=== PATIENT | female | born 1955 | race Caucasian/White ===

== ENCOUNTER 2020-12-09 11:27 | Outpatient (CLI) | payer MEDICARE, SELFPAY | END 2020-12-09 11:28 | disposition home or self-care (01) | LOC: ANHCOVIDVC 11:27 | PROVIDERS: PCP Family Medicine | DX: Z23 Encounter for immunization (principal) | CPT/HCPCS: 0001A; 91300 ==

== ENCOUNTER 2020-12-30 11:28 | Outpatient (CLI) | payer MEDICARE, SELFPAY | END 2020-12-30 11:29 | disposition home or self-care (01) | LOC: ANHCOVIDVC 11:28 | PROVIDERS: PCP Family Medicine | DX: Z23 Encounter for immunization (principal) | CPT/HCPCS: 0002A; 91300 ==

== ENCOUNTER 2021-08-18 16:00 | Outpatient (CLI) | payer MEDICARE, SELFPAY ==
--- NOTE | ~2021-08-18 | CT_ITS ---
EXAMINATION: CT soft tissue neck w con DATE: 08/18/2021 17:37 INDICATION: Neck mass. TECHNIQUE: Computed tomography (CT) of the neck was performed with 75 mL Omnipaque-350 intravenous co ntrast. Automated exposure control and iterative reconstruction technique were employed. The dose-audrey gth product was 583.29 mGy-cm. COMPARISON: Chest CT 10/02/2019 FINDINGS: Calcified lung nodules and calcified hilar lymph nodes are consistent with old granulomatou s disease. There is a skin marker overlying right parotid gland. There is no abnormal mass in this ar ea. There is no cervical lymphadenopathy. There is plaque in the proximal internal carotid arteries w ith 0% stenosis relative to normal distal artery lumen diameters. There is mild mucosal thickening in right ethmoid sinus. The mastoid air cells are normal. There is moderate cervical spondylosis. There is a chronic hemangioma in T1 vertebral body. IMPRESSION: 1. No abnormal neck mass or lymphadenopathy. Reviewed, dictated and finalized at location A. NG REPAIRER
--- NOTE | ~2021-08-18 | CT_ITS ---
EXAMINATION: CT lung screening DATE: 08/18/2021 17:36 INDICATION: HX OF NICOTINE DEPENDENCE TECHNIQUE: Computed tomography (CT) of the chest was performed without intravenous contrast. Addition al 3D reconstructions utilizing coronal maximum intensity projection (MIP) were performed. Automated exposure control and iterative reconstruction technique were employed. The dose-length product was 18 6.97 mGy-cm. COMPARISON: 10/02/2019 FINDINGS: Unchanged bilateral calcified pulmonary nodules, calcified mediastinal and bilateral hilar lymph node s and multiple calcified hepatic and splenic nodules, all consistent with old granulomatous disease. No significant interval change in a few mild peripheral reticular opacities likely mild atelectasis/s carring. No honeycombing. No pneumonia, pulmonary edema or pleural effusion. Heart size is normal. No pericardial effusion. Thoracic aorta is normal in caliber. Small sliding-type hiatal hernia. Calcifi ed gallstone. Mild to moderate thoracic spondylosis. IMPRESSION: 1. Lung-RADS category 1: Negative. Continue annual screening with noncontrast low-dose chest CT in 12 months. Reviewed, dictated and finalized at location A. DENTIAL SALES IMPRESSION: 1. Lung-RADS category 1: Negative. Continue annual screening with noncontrast l ow-dose chest CT in 12 months.
== END 2021-08-18 16:01 | disposition home or self-care (01) ==
PROVIDERS: PCP Family Medicine; Visit Provider Physician Assistant
DX: Z12.2 Encounter for screening for malignant neoplasm of respiratory organs (principal); Z87.891 Personal history of nicotine dependence; R22.1 Localized swelling, mass and lump, neck
CPT/HCPCS: 70491; 71271; Q9967

== ENCOUNTER 2021-09-16 08:49 | Outpatient (CLI) | payer MEDICARE, SELFPAY ==
--- NOTE | ~2021-09-16 | MM_ITS ---
EXAMINATION: MM screening [facility] BI w yulissa HISTORY: Screening mammogram TECHNIQUE: Craniocaudal and mediolateral oblique 3-D tomosynthesis images were obtained and synthetic 2-D images were generated. CAD analysis was submitted and interpreted. COMPARISON: 10/02/2019, 08/03/2017, 07/29/2017 BREAST PARENCHYMAL COMPOSITION: The breasts are almost entirely fatty. FINDINGS: There is no evidence of suspicious mass, calcification, or architectural distortion to sugg est malignancy in either breast. There has been no suspicious interval change. IMPRESSION: 1. No mammographic evidence of malignancy. 2. Recommend routine screening mammography in one year. BI-RADS Category 1: Negative Reviewed, dictated and finalized at location A. SIGHT SPECIALIST
== END 2021-09-16 08:50 | disposition home or self-care (01) ==
LOC: ANHIMG 08:52
PROVIDERS: PCP Family Medicine; Visit Provider Physician Assistant
DX: Z12.31 Encounter for screening mammogram for malignant neoplasm of breast (principal)
CPT/HCPCS: 77063; 77067

== ENCOUNTER 2021-09-24 01:52 | Day surgery (SDC) | payer MEDICARE, SELFPAY ==
[2021-09-11 14:36] VITALS: BMI 34.8
--- NOTE | 2021-09-23 13:33 | PM.HPGS ---
History of Present Illness History of Present Illness Consent: Risks, benefits, and alternatives have been discussed and questions answered. Patient agrees to proceed with procedure. Chief complaint: positive cologuard, dysphagia Narrative: Svitlana Sequeira is a 66 year old female was had dysphagia for the past 6 months. pills seem to get stuck on the right side of her throat. She can not swallow food without difficulty. She is also referred for colon cancer screening. She has never had a colonoscopy Review of Systems Review of Systems: All systems reviewed & are unremarkable except as noted in HPI and below PMFSH Past Medical History Medical History Positive colorectal cancer screening using Cologuard test Well adult Surgical History Surgical History History of bunionectomy of both great toes Social History Social History Smoking packs per day: 1.5 Smoking cigarettes per day: 30.0 Years smoked: 35 Smoking pack-years: 52.50 Smoking status: Former smoker Tobacco type: cigarettes Second hand tobacco smoke exposure: No Smoking end date: 10/04/05 Alcohol intake: current Alcohol use details: occasional Substance use: never Substance use type: does not use Living arrangements: with family Gender identity (if verbalized by the patient): Female Spiritual care concerns: No Meds Home Medications and Allergies Home Medications Medication Instructions Recorded Confirmed Type phentermine 37.5 mg tablet 37.5 mg PO DAILY #30 tablet 09/05/21 09/24/21 Rx Allergies Allergy/AdvReac Type Severity Reaction Status Date / Time oxybutynin Allergy Mild rash Verified 09/24/21 09:46 Exam Resp: Auscultation: clear to auscultation bilaterally Cardio: Rate: regular rate Rhythm: regular rhythm GI: GI Palp: Yes Soft to palpation and No Tenderness to palpation present (GI) Assessment and Plan Assessment and plan (1) Dysphagia: Code(s): R13.10 - Dysphagia, unspecified Status: Acute Assessment and Plan: EGD with possible biopsy or dilatation or cautery. (2) Colon cancer screening: Code(s): Z12.11 - Encounter for screening for malignant neoplasm of colon Status: Acute Assessment and Plan: Colonoscopy with possible biopsy or polypectomy or cautery or injection of substances.
[2021-09-24 09:48] VITALS: BP 144/55; PULSE 96; RESP 16; TEMP 36.2; O2SAT 95; BMI 34.9
[2021-09-24] MEDS: LACTATED RINGERS 1,000 ML 150 ML IV CONT (10:04)
--- NOTE | 2021-09-24 10:26 | WPDANESEPPF ---
Anes - Initial Pre Proc Eval Procedure: Operation Date: 09/24/21 11:00 Proposed Procedures p Esophagogastroduodenoscopy & Colonoscopy - Douglas Swanson MD Date/Time: 09/24/21 10:26 Surgeon: Douglas Swanson MD Pre Op Diagnosis: positive cologuard, dysphagia Patient Data Age: 66 Gender: F Height: 1.65 m Weight: 95.2 kg Last Vital Signs Temp 97.2 F L 09/24/21 09:48 Pulse 96 09/24/21 09:48 Resp 16 09/24/21 09:48 BP 144/55 H 09/24/21 09:48 Pulse Ox 95 09/24/21 09:48 Allergies Allergy/AdvReac Type Severity Reaction Status Date / Time oxybutynin Allergy Mild rash Verified 09/24/21 09:46 Home Medications Medication Instructions Recorded Confirmed Type phentermine 37.5 mg tablet 37.5 mg PO DAILY #30 tablet 09/05/21 09/24/21 Rx Patient hx anesthesia problems: none Family hx anesthesia problems: none Results Review: All pre-operative results and documents have been reviewed as part of the pre-operative evaluation. [facility] Past Medical History Medical History (Updated 09/23/21 @ 13:34 by Douglas Swanson MD) Positive colorectal cancer screening using Cologuard test Well adult Surgical History Surgical History History of bunionectomy of both great toes Social History Social History Smoking packs per day: 1.5 Smoking cigarettes per day: 30.0 Years smoked: 35 Smoking pack-years: 52.50 Smoking status: Former smoker Tobacco type: cigarettes Second hand tobacco smoke exposure: No Smoking end date: 10/04/05 Alcohol intake: current Alcohol use details: occasional Substance use: never Substance use type: does not use Living arrangements: with family Gender identity (if verbalized by the patient): Female Spiritual care concerns: No Anes - Eval Final PreProcedure Day of Procedure 09/24/21 10:26 Patient weight: obese Heart: regular rate and rhythm Lungs: clear to auscultation Airway: Mallampati scale class II Neurological: alert and oriented Last oral intake: >/= 8 hours ASA classification: III Emergent: no Anesthetic plan: proceed Anesthesia type and monitoring: general GIVS and standard monitoring Results Review: All pre-operative results and documents have been reviewed as part of the pre-operative evaluation. Informed Consent: The patient's anesthetic plan and its attendant risks and benefits were discussed with the patient/family/POA. Questions were solicited and answers provided to the satisfaction of the patient/family/POA.
[2021-09-24 11:31] VITALS: BP 120/63; PULSE 80; RESP 18; O2SAT 100
--- NOTE | 2021-09-24 11:32 | SUR.OPER ---
EGD START 1059, END 1101 COLONOSCOPY START 1108, END 1128
[2021-09-24 11:41] VITALS: BP 130/64; PULSE 82; RESP 18; O2SAT 100
[2021-09-24 11:51] VITALS: BP 125/62; PULSE 78; RESP 17; O2SAT 100
== END 2021-09-24 12:07 | disposition home or self-care (01) ==
PROVIDERS: PCP Family Medicine; Visit Provider Internal Medicine Gastroenterology
PROC: 0DJ08ZZ Inspection of Upper Intestinal Tract, Via Natural or Artificial Opening Endoscopic (ICD-10-PCS; CPT 43235; principal; 2021-09-24 11:00)
DX: R19.5 Other fecal abnormalities (principal); D12.5 Benign neoplasm of sigmoid colon; K21.9 Gastro-esophageal reflux disease without esophagitis; R13.10 Dysphagia, unspecified
CPT/HCPCS: 45385; 43239; 87081; 88305; J2704; J7120

== ENCOUNTER 2022-09-11 14:13 | Outpatient (CLI) | payer MEDICARE, SELFPAY ==
--- NOTE | ~2022-09-11 | CT_ITS ---
EXAMINATION: CT lung screening DATE: 09/11/2022 14:39 INDICATION: History of tobacco use. Personal history of dependence. TECHNIQUE: Computed tomography (CT) of the chest was performed without intravenous contrast. The dose -length product was 310.12 mGy-cm. Automated exposure control and iterative reconstruction technique were employed. COMPARISON: CT dated 08/18/2021 and 10/02/2019 FINDINGS: Heart size is normal. Small hiatal hernia. No significant pleural or pericardial effusion. There are gallstones. There are calcified granulomas of the spleen. No thoracic lymphadenopathy. Ther e is calcified granuloma right mid thorax and lingula no noncalcified pulmonary nodules are identifie d. No focal airspace consolidation. No pneumothorax. Mild thoracic spondylosis. Stable sclerotic lesi on of T1, likely benign bone island. IMPRESSION: 1. Lung-RADS category 1: Negative. Continue annual screening with noncontrast low-dose chest CT in 12 months. Reviewed, dictated and finalized at location A. AMBULATORY ANALYST IMPRESSION: 1. Lung-RADS category 1: Negative. Continue annual screening with noncontrast l ow-dose chest CT in 12 months.
== END 2022-09-11 14:14 | disposition home or self-care (01) ==
PROVIDERS: PCP Family Medicine; Visit Provider Physician Assistant
DX: Z12.2 Encounter for screening for malignant neoplasm of respiratory organs (principal); Z87.891 Personal history of nicotine dependence
CPT/HCPCS: 71271

== ENCOUNTER 2023-07-19 14:11 | Emergency (ER) | payer MEDICARE, SELFPAY ==
[2023-07-19 14:19] VITALS: BP 130/76; PULSE 86; RESP 16; TEMP 36.5; O2SAT 98
--- NOTE | 2023-07-19 14:56 | ED.EAR ---
HPI - Ear Problem General Stated complaint: NECK SWELLING Time Seen by Provider: 07/19/23 14:30 Source: patient Mode of arrival: ambulatory Limitations: no limitations History of Present Illness HPI Narrative: Patient is a 67-year-old female that presents with right ear and jaw pain that started this morning. Patient has not taken anything for symptoms. Denies any congestion, sore throat, cough, fever, chills, nausea, vomiting, diarrhea. Denies any seasonal allergies. MD Complaint: ear pain Related Data Allergies Allergy/AdvReac Type Severity Reaction Status Date / Time oxybutynin Allergy Mild rash Verified 04/02/23 12:57 Review of Systems Review of Systems: All systems reviewed & are unremarkable except as noted in HPI and below Constitutional: Constitutional: Denies body ache(s), Denies chills, Denies fever(s), Denies headache(s) and Denies malaise Eyes: Eyes: Denies blurry vision, Denies eye discharge and Denies irritation ENT: Reports otalgia, Denies headache(s), Denies nasal congestion, Denies nasal discharge and Denies sore throat Cardiovascular: Cardiovascular: Denies chest pain, Denies edema, Denies palpitations and Denies dyspnea on exertion Respiratory: Respiratory: Denies cough and Denies dyspnea on exertion Gastrointestinal: Gastrointestinal: Denies abdominal pain, Denies diarrhea, Denies nausea and Denies vomiting Musculoskeletal: Musculoskeletal: Denies back pain, Denies arthralgias and Denies muscle weakness Integumentary/Breasts: Skin/Breast: Denies pruritus and Denies rash Neurologic: Denies headache(s) Psychiatric: Psychiatric: Reports no additional psychiatric complaints Endocrine: Endocrine: Denies palpitations [facility] Past Medical History Medical History Positive colorectal cancer screening using Cologuard test Tobacco use Well adult Surgical History Surgical History History of bunionectomy of both great toes Social History Social History Smoking packs per day: 1.5 Smoking cigarettes per day: 30.0 Years smoked: 7 Smoking pack-years: 10.50 Smoking status: Former smoker Tobacco type: cigarettes Second hand tobacco smoke exposure: No Smoking end date: 10/04/05 Alcohol intake: current Alcohol use details: occasional Substance use: never Substance use type: does not use Living arrangements: with family Occupation/Education: retired Gender identity (if verbalized by the patient): Female Spiritual care concerns: No Comments At time of signature, agree with nursing past medical, surgical, social and family history. There is no relevant family history pertinent to the presenting complaint? Exam Const: General: cooperative, healthy appearing, no acute distress and well nourished Nutritional Appearance: well nourished Orientation/consciousness: patient oriented x3 Limitations: no limitations HENMT: Head: normal to inspection, normocephalic and atraumatic Ears: hearing grossly normal bilaterally, EAC's normal, no periauricular adenopathy and TM abnormal bulging on the right and erythematous on the right Face/Nose/Sinus: Normal external nose present, Normal nares present, Normal nasal mucous membranes and turbinates present, No nasal discharge present, normal facial exam and sinuses nontender Face and sinus: normal facial exam and sinuses nontender Mouth: Yes Normal oral and palatal mucosa present, Yes lip normal, Yes tongue normal and Yes moist mucous membranes Throat: posterior oropharynx normal, tonsils normal and uvula midline Eyes: General: appearance normal, both eyes and all related structures Alignment and Position: alignment normal and position normal Eyelids: eyelids normal Pupils: Equal, round and reactive pupils present EOM: EOMs intact bilaterally Neck: Neck: normal visual inspec
== END 2023-07-19 15:06 | disposition home or self-care (01) ==
PROVIDERS: Emergency Provider Nurse Practitioner Family; PCP Family Medicine
DX: H66.001 Acute suppurative otitis media without spontaneous rupture of ear drum, right ear (principal); Z87.891 Personal history of nicotine dependence
CPT/HCPCS: 99213; G0463

== ENCOUNTER 2023-08-21 17:12 | Emergency (ER) | payer MEDICARE, SELFPAY ==
[2023-08-21 17:25] VITALS: BP 114/52; PULSE 85; RESP 16; TEMP 37; O2SAT 98
--- NOTE | 2023-08-21 17:56 | ED.FEMALEGU ---
HPI - Female Genitourinary General Chief complaint: Urogenital-Female Stated complaint: UTI SYMPTOMS Time Seen by Provider: 08/21/23 17:56 Source: patient and RN notes reviewed Mode of arrival: ambulatory Limitations: no limitations History of Present Illness HPI Narrative: 67 y/o female presented for c/o urinary frequency and urgency, and states she feels a tingling sensation from bladder to arms and hands when urinating. Onset 2 weeks. Denies hx UTI. Denies hematuria, dysuria, flank pain, abdominal pain, n/v/d/f/c. Related Data Allergies Allergy/AdvReac Type Severity Reaction Status Date / Time oxybutynin Allergy Mild rash Verified 08/21/23 17:21 Review of Systems Review of Systems: CONSTITUTIONAL: Denies body aches, fever, chills, or sweats. CARDIOVASCULAR: Denies chest pain, palpitations, or edema. RESPIRATORY: Denies cough or dyspnea. GASTROINTESTINAL: Denies abdominal pain, nausea, vomiting, or diarrhea. GENITOURINARY: Reports frequency, urgency, denies dysuria, hematuria, flank pain SKIN: Denies rash, itching, or wounds. MUSCULOSKELETAL: Denies back pain or myalgia. [facility] Past Medical History Medical History Positive colorectal cancer screening using Cologuard test Tobacco use Well adult Surgical History Surgical History History of bunionectomy of both great toes Social History Social History Smoking packs per day: 1.5 Smoking cigarettes per day: 30.0 Years smoked: 7 Smoking pack-years: 10.50 Smoking status: Former smoker Tobacco type: cigarettes Second hand tobacco smoke exposure: No Smoking end date: 10/04/05 Alcohol intake: current Alcohol use details: occasional Substance use: never Substance use type: does not use Living arrangements: with family Occupation/Education: retired Gender identity (if verbalized by the patient): Female Spiritual care concerns: No Comments At time of signature, I have reviewed and agree with nursing past medical, surgical, social and family history unless otherwise noted. Please see nursing chart for further information. There is no relevant family history pertinent to the presenting complaint Exam Narrative: GENERAL: Well-appearing ENT: Mucous membranes pink and moist. NECK: Normal AROM. Supple. CHEST: No respiratory distress. Clear to auscultation. HEART: Regular rate and rhythm. ABDOMEN: Soft, nontender, nondistended, normal active bowel sounds. No CVA tenderness SKIN: Warm, dry, no rash. NEURO: No focal deficits. Alert and oriented x3. Gait steady. PSYCH: Normal affect. Course Course Emergency Course: Patient is aware of diagnosis, understands and agrees to treatment plan. Anticipatory guidance given. Patient agrees to follow-up as directed and is aware of reasons to seek care at the emergency department. Portions of this record may have been created with voice recognition software Level of Care: Express Care Visit Vital Signs Vital signs: Vital Signs Temperature 98.6 F 08/21/23 17:25 Pulse Rate 85 08/21/23 17:25 Respiratory Rate 16 08/21/23 17:25 Blood Pressure 114/52 L 08/21/23 17:25 Pulse Oximetry 98 08/21/23 17:25 Temperature 98.6 F 08/21/23 17:25 Pulse Rate 85 08/21/23 17:25 Respiratory Rate 16 08/21/23 17:25 Blood Pressure 114/52 L 08/21/23 17:25 Pulse Oximetry 98 08/21/23 17:25 Reviewed MDM - Female Genitourinary MDM Narrative Medical decision making narrative: Result of urine reviewed with pt. Will culture urine. Advised supportive measures and signs/symptoms to go to the ER. Pt is appropriate for outpt treatment and f/u. Differential Diagnosis Differential diagnosis: Likely urinary tract infection, vaginitis and cystitis Lab Data Labs: Urine Glucose Negati
== END 2023-08-21 18:21 | disposition home or self-care (01) ==
PROVIDERS: Emergency Provider Nurse Practitioner Family; PCP Family Medicine
DX: N39.0 Urinary tract infection, site not specified (principal); Z87.891 Personal history of nicotine dependence
CPT/HCPCS: 81003; 87086; 87088; 99213; G0463

== ENCOUNTER 2023-09-21 07:44 | Outpatient (CLI) | payer MEDICARE, SELFPAY ==
--- NOTE | ~2023-09-21 | XR_ITS ---
AP view of the pelvis and AP and lateral views of the left hip Clinical history: Pain Findings: No acute fracture or dislocation is seen. Osseous alignment is anatomic. Bilateral hip and SI joint spaces are preserved. Soft tissues are unremarkable. Impression: No significant abnormality is seen. Reviewed, dictated and finalized at [facility]. TY CLOTHING AND EQUIPMENT DEVELOPER Impression: No significant abnormality is seen.
--- NOTE | ~2023-09-21 | CT_ITS ---
CT Scan of the Chest without Contrast: Clinical Indication: Lung cancer screening, personal history of nicotine dependence Technique: Contiguous sections were acquired throughout the chest without intravenous contrast. Dose reduction technique was used on this scan by utilizing automated exposure control and iterative recon struction technique. The dose-length product (DLP) was 251.20 mGy-cm. COMPARISON: 09/11/2022 Findings: There is no evidence of any significant mediastinal, hilar or axillary lymphadenopathy. Small calcifi ed mediastinal lymph nodes are present. The mediastinal soft tissues appear normal. There is no evidence of pleural or pericardial effusion. Lungs are clear, aside from calcified granulomas. Images through the upper abdomen reveal calcified gallstone ankle granulomas. Impression: Lung RADS 2: Benign appearance. 12 month follow-up screening CT advised. Cholelithiasis. Reviewed, dictated and finalized at [facility]. E OIL PUMPER Impression: Lung RADS 2: Benign appearance. 12 month follow-up screening CT advised. Cholelithiasis.
== END 2023-09-21 07:45 | disposition home or self-care (01) ==
LOC: ANHIMG 07:46
PROVIDERS: PCP Family Medicine; Visit Provider Physician Assistant
DX: Z12.2 Encounter for screening for malignant neoplasm of respiratory organs (principal); K80.20 Calculus of gallbladder without cholecystitis without obstruction; R91.8 Other nonspecific abnormal finding of lung field; Z87.891 Personal history of nicotine dependence
CPT/HCPCS: 71271; 73502

== ENCOUNTER 2023-09-30 06:33 | Outpatient (CLI) | payer MEDICARE, SELFPAY ==
--- NOTE | ~2023-09-30 | CT_ITS ---
EXAMINATION: CT abdomen pelvis wo/w con DATE: 09/30/2023 07:07 INDICATION: Acquired right renal cyst TECHNIQUE: Computed tomography (CT) of the abdomen and pelvis was performed without and with 100 mL O mnipaque-350 intravenous contrast. Automated exposure control and iterative reconstruction technique were employed. The dose-length product was 2331.33 mGy-cm. COMPARISON: None FINDINGS: Mild dependent atelectasis in bilateral lower lobes and additional mild discoid atelectasis anteriorl y in the basilar left lower lobe. Calcified nodule at the lingula along with multiple splenic and a f ew hepatic calcifications consistent with old granulomatous disease. Heart size is normal. No pericar dial or pleural effusion. Calcified gallstone at the neck of the otherwise normal-appearing gallbladd er with no odette dilation, wall thickening or pericholecystic stranding to suggest acute cholecystiti s. Mild fatty atrophy of the pancreas. Bilateral adrenal glands and right kidney are normal. 8 mm Davis niak 2 cystic lesion at the lower pole of the left kidney with suggestion of a thin internal septatio n with subtly discernible but not measurable enhancement. No urolithiasis or other renal lesions iden tified. Bowels including the appendix are normal. Bladder, uterus and bilateral adnexa are unremarkab le. No free intraperitoneal gas or fluid. No pathologically enlarged abdominal or pelvic lymphadenopa thy. Small fat-containing umbilical hernia. Mild thoracic and lumbar spondylosis with sacralized L5 s egment. Small enchondroma versus bone island at the intratrochanteric right femur. IMPRESSION: 1. 8 mm Bosniak 2 cystic lesion at the lower pole of the left kidney which requires no further follow -up. 2. Cholelithiasis. 2. Small fat-containing umbilical hernia. Reviewed, dictated and finalized at location A. WORKER IMPRESSION: 1. 8 mm Bosniak 2 cystic lesion at the lower pole of the left kidney which requ ires no further follow-up. 2. Cholelithiasis. 2. Small fat-containing umbilical hernia.
== END 2023-09-30 06:34 | disposition home or self-care (01) ==
PROVIDERS: PCP Family Medicine; Visit Provider Urology
DX: N28.1 Cyst of kidney, acquired (principal); K80.20 Calculus of gallbladder without cholecystitis without obstruction; K42.9 Umbilical hernia without obstruction or gangrene; N28.89 Other specified disorders of kidney and ureter
CPT/HCPCS: 74178; Q9967

== ENCOUNTER 2024-03-02 09:47 | Outpatient (CLI) | payer MEDICARE, SELFPAY ==
--- NOTE | ~2024-03-02 | XR_ITS ---
Right Knee Technique: AP, lateral, and sunrise views were obtained. Clinical History: Pain Findings: No fracture or dislocation is seen. There is moderate degenerative change of the patellofem oral compartment. There is mild degenerative change of the medial lateral compartment. Probable chond roid lesion of the proximal fibula, likely enchondroma. Soft tissues are unremarkable. No joint effus ion is seen. Impression: Degenerative changes, as above, worst at the patellofemoral compartment. 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 Reviewed, dictated and finalized at location M. Impression: Degenerative changes, as above, worst at the patellofemoral compartment. 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
== END 2024-03-02 09:48 | disposition home or self-care (01) ==
PROVIDERS: PCP Family Medicine; Visit Provider Physician Assistant Medical
DX: M25.561 Pain in right knee (principal)
CPT/HCPCS: 73562

== ENCOUNTER 2024-03-07 08:27 | Outpatient (CLI) | payer MEDICARE, SELFPAY ==
--- NOTE | ~2024-03-07 | DEXA_ITS ---
Bone Density Report Name: KAYLIN BELL Age: 68 Sex: Female Ethnicity: White Date of : 1955 Indication: postmenopausal; screening for osteoporosis; height loss; cancer; Referring Provider: ELLIS NAJERA Study: Bone densitometry was performed. Exam Date: March 07, 2024 Accession number: [id number] Bone Density: Region BMD T-score Z-score Classification AP Spine(L1-L4) 0.993 -0.5 1.6 Normal Femoral Neck (Left) 0.712 -1.2 0.6 Osteopenia Total Hip (Left) 1.007 0.5 2.1 Normal Femoral Neck (Right) 0.709 -1.3 0.6 Osteopenia Total Hip (Right) 1.004 0.5 2.0 Normal Total Hip Mean 1.006 0.5 2.1 Normal World Health Organization criteria for BMD impression classify patients as: Normal (T-score at or above -1.0), Osteopenia (T-score between -1.0 and -2.5), or Osteoporosis (T-score at or below -2.5). 10-year Fracture Risk(1): Major Osteoporotic Fracture 8.3% Hip Fracture 0.9% Reported Risk Factors: [place] (), Neck BMD=0.712, BMI=39.1 (1) FRAX(R) Version 3.08. Fracture probability calculated for an untreated patient. Fracture probability may be lower if the patient has received treatment. Previous Exams: Region Exam Age BMD T-score BMD Change BMD Change Date g/cm2 vs Baseline vs Previous AP Spine (L1-L4) 03/07/2024 68 0.993 -0.5 0.027 (2.8%)# 0.027 (2.8%)# 10/02/2019 64 0.965 -0.7 Total Hip(Left) 03/07/2024 68 1.007 0.5 0.049 (5.1%)* 0.049 (5.1%)* 10/02/2019 64 0.959 0.1 Total Hip(Right) 03/07/2024 68 1.004 0.5 0.013 (1.3%) 0.013 (1.3%) 10/02/2019 64 0.991 0.4 *Denotes significance at 95% confidence level, LSC for AP Spine = 0.022 g/cm2, LSC for Total Hip = 0.027 g/cm2 # Denotes dissimilar scan types or analysis methods Clinical Information Provided by Patient: Has used the following medications: HRT (i.e. estrogen/hormone therapy) Has the following medical conditions: Cancer Patient maximum height was 66 Menopause Age: 43 No regular weight bearing exercise Drinks caffeinated beverages Onset of menses at age 6 Number of children 2 Impression: The patient has low bone mass, based on the Right Femoral Neck T-score. The patient has an estimated ten-year risk of hip fracture of 0.9% and an estimated ten-year risk of major fracture of 8.3%, based on the WHO FRAX algorithm. No significant bone loss was observed. Discussion: BONE DENSITY IS LOW AT ONE OR MORE SKE
--- NOTE | ~2024-03-07 | MM_ITS ---
EXAMINATION: MM screening cintia BI w yulissa HISTORY: Screening TECHNIQUE: Craniocaudal and mediolateral oblique 3-D tomosynthesis images were obtained and synthetic 2-D images were generated. CAD analysis was submitted and interpreted. COMPARISON: Comparison to multiple prior studies sequentially, with oldest reviewed study dated 07/05. BREAST PARENCHYMAL COMPOSITION: Not Dense: Breast are almost entirely fatty. FINDINGS: There is no evidence of suspicious mass, calcification, or architectural distortion to sugg est malignancy in either breast. There has been no suspicious interval change. IMPRESSION: 1. No mammographic evidence of malignancy. 2. Recommend routine screening mammography in one year. BI-RADS Category 1: Negative Reviewed, dictated and finalized at location B.
== END 2024-03-07 08:28 | disposition home or self-care (01) ==
PROVIDERS: PCP Family Medicine; Visit Provider Physician Assistant
DX: Z12.31 Encounter for screening mammogram for malignant neoplasm of breast (principal); M85.89 Other specified disorders of bone density and structure, multiple sites; N95.1 Menopausal and female climacteric states; Z13.820 Encounter for screening for osteoporosis
CPT/HCPCS: 77063; 77067; 77080